=== PATIENT | male | born 1995 | race Caucasian/White ===

== ENCOUNTER 2017-03-15 16:39 | Emergency (ER) | payer OTHER ==
[~2017-03-15] VITALS: Ht 190.5 cm; Wt 157.9 kg
[~2017-03-15 16:39] MED LIST: SERT1TAB68 PO
[2017-03-15 16:43] VITALS: TEMP 36.5; Ht 190.5 cm; Wt 157.9 kg
[2017-03-15] MEDS ORDERED: BUPR200T2 PO (17:00)
[2017-03-15 17:24] VITALS: BP 137/85; PULSE 87; O2SAT 98
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
== END 2017-03-15 17:25 | disposition home or self-care (01) ==
LOC: C.EDB 16:40 → C.EDD 17:25
DX: F07.81 Postconcussional syndrome (principal); F32.9 Major depressive disorder, single episode, unspecified; Z80.9 Family history of malignant neoplasm, unspecified; Z83.3 Family history of diabetes mellitus; Z82.49 Family history of ischemic heart disease and other diseases of the circulatory system

== ENCOUNTER 2017-05-30 10:56 | Emergency (ER) | payer OTHER ==
[~2017-05-30] VITALS: Ht 190.5 cm; Wt 157.0 kg
[2017-05-30 10:56] VITALS: TEMP 36.8; Ht 190.5 cm; Wt 157.0 kg
[~2017-05-30 10:56] MED LIST changes: +BUPR200T2 PO; -SERT1TAB68 PO
[2017-05-30 12:09] VITALS: O2SAT 100
[2017-05-30] MEDS ORDERED: SODIUM CHLORIDE 0.9% 1000ML 1,000 ML IV STA (12:16)
[2017-05-30 12:54] LABS: BASO % 0.3 %; BASO ABS # 0.02 K/uL (0-0.2); EOS % 2.7 %; EOS ABS # 0.18 K/uL (0-0.5); HEMATOCRIT 45.4 % (42-52); IG# 0.01 K/uL (0.00-0.02); LYMPH % 22.6 %; LYMPH ABS # 1.53 K/uL (1.2-3.4); MEAN CELL VOLUME 82.5 fL (80-100); MEAN CORPUSCULAR HEMOGLOBIN 29.1 pg (25-34); MEAN CORPUSCULAR HGB CONC 35.2 g/dl (32-36); MEAN PLATELET VOLUME 10.4 fL (7.4-10.4); MONO % 9.3 %; MONO ABS # 0.63 K/uL (0.11-0.59); NEUT ABS # 4.39 K/uL (1.4-6.5); PLATELET COUNT 227 K/uL (130-400); RED CELL DISTRIBUTION WIDTH CV 13.3 % (11.5-14.5); WHITE BLOOD COUNT 6.76 K/uL (4.8-10.8)
[2017-05-30 13:17] LABS: ALBUMIN 3.9 gm/dl (3.4-5.0); ALT/SGPT 74 U/L (12-78); AST/SGOT 27 U/L (15-37); BLOOD UREA NITROGEN 9 mg/dl (7-18); CALCIUM 8.7 mg/dl (8.5-10.1); CARBON DIOXIDE 27 mmol/L (21-32); CREATININE 0.88 mg/dl (0.60-1.40); GLUCOSE 101 mg/dl (70-99); POTASSIUM 3.9 mmol/L (3.5-5.1); SODIUM 138 mmol/L (136-145)
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
[2017-05-30 13:45] LABS: ALKALINE PHOSPHATASE 72 U/L (45-117); TOTAL PROTEIN 7.6 gm/dl (6.4-8.2)
[2017-05-30 13:59] VITALS: BP 120/82; PULSE 83; O2SAT 100
== END 2017-05-30 14:15 | disposition home or self-care (01) ==
LOC: EDBD 10:56 → C.EDC 10:58
DX: R55 Syncope and collapse (principal); J45.909 Unspecified asthma, uncomplicated; F32.9 Major depressive disorder, single episode, unspecified; Z80.9 Family history of malignant neoplasm, unspecified; Z83.3 Family history of diabetes mellitus; Z82.49 Family history of ischemic heart disease and other diseases of the circulatory system; Z87.891 Personal history of nicotine dependence; Z79.899 Other long term (current) drug therapy